=== PATIENT | female | born 1945 | race Caucasian/White ===

== ENCOUNTER 2022-03-27 14:00 | Outpatient (RCR) | payer MEDICARE, SELFPAY ==
--- NOTE | 2022-01-11 15:15 | OT.OPOE ---
OT Outpatient Ortho Eval OT Outpatient Ortho Eval Start: 01/10/22 11:50 Freq: Status: Active Protocol: Document 01/11/22 14:16 AMB (Rec: 01/11/22 15:06 AMB [id number]) E-Signed By Nancy Costello, OTR/L, CLT, VICE PRESIDENT [employer] OT OP Ortho Eval Details Type Type Eval Complexity Low Outpatient History/Precautions Current Condition/Medical Diagnosis Treatment Diagnosis LUE 2nd and 3rd TF release Date of Onset 10/26/21 Medical Contraindications DM,Metal Implants,Arthritis, Latex Allergy Other Contraindications PMH also includes BTKA, RTHA, RTSA+revision, BUE CTR, RUE TF release Medical/Functional History Medical History Reviewed Yes Prior Level of Function/Mobility Full, pain-free use of LUE Social History Employment Status Retired Oriented Mental Status No Concerns Ortho Subjective Subjective Subjective Pt states she underwent LUE TF release on her 2nd and 3rd fingers on 10/26/21 and has had difficulty straightening them ever since. Pt had TF release on her RUE a few years ago and did not struggle with this. Pt is RHD. Pt denies any pain at rest, has pain at 7-8/10 when she tries to straighten her fingers. Pain Assessment Pain Present Pain Present Pain Reported Location Left Finger Description Sharp,Tender Intensity 8 OT Objective Data Additional Information Objective Additional Information 01/11/22 AROM of BUE hands is WNL throughout with the exception of the LUE 2nd and 3rd digits. AROM of the LUE 2nd digit PIP is -25-90 flex, 3rd digit PIP is -25-85. Interactive Art Director on the RUE is 45#, LUE is 30#. 3pt pinch on the RUE is 10#, LUE is 8#. Lateral pinch on the RUE is 12#, LUE is 10#. OT Problems Problems Problems Decreased Strength,Decreased Range of Motion,Decreased Dexterity,Decreased Fine Motor ,Lifting,Gripping,Pinching Other Problems Opening Containers Patient Potential Good Ortho Goals Ortho Goals Goals 1. Pt will be independent and compliant with HEP in order to resume full, pain-free use of the involved UE. 3 weeks 2. Pt will demonstrate full, pain-free AROM of the involved UE in order to improve ability to grasp and hold. 6 weeks 3. 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 8 weeks. OT Outpatient Treatment Plan Ortho Plan Expected Frequency 1-2x Week Expected Duration 6-8 Weeks Treatment Plan Evaluation,Edema Control, Manual Therapy,Splinting, Ultrasound,Wound Care/Scar Management,Therapeutic Exercise,Therapeutic Activities Certification Certification I Certify That: Therapy Services Provided, Therapy Plan Established, Therapy Plan Reviewed
== END 2022-09-07 16:04 | disposition home or self-care (01) ==
PROVIDERS: Visit Provider Physician Assistant Surgical
DX: M65.339 Trigger finger, unspecified middle finger (principal); M65.332 Trigger finger, left middle finger; Z51.89 Encounter for other specified aftercare
CPT/HCPCS: 97035; 97140; 97165

== ENCOUNTER 2022-07-20 08:48 | Outpatient (CLI) | payer MEDICARE, SELFPAY ==
--- NOTE | 2022-07-20 09:15 | CRLHL7_ITS ---
For Patients: As a result of the Cures Act, medical imaging exams and procedure reports are released immediately into your electronic medical record. You may view this report before your referring provider. If you have questions, please contact your health care provider. INDICATION: Gastroesophageal reflux. TECHNIQUE: Double-contrast esophagram. FINDINGS: Presbyesophagus. Tertiary contractions. Incomplete clearing of the barium with the patient upright. With the patient in the recumbent position there was reflux up to the high esophagus incompletely cleared. Very small sliding-type esophageal hiatal hernia seen only intermittently. The visualized stomach and duodenum are grossly unremarkable. Incidental note is made of a sternotomy and a cardiac valve replacement. Lumbar spine surgery incompletely visualized. Surgically absent gallbladder. 2 minutes 15 seconds fluoroscopy time utilized. IMPRESSION: 1. Presbyesophagus. Small sliding-type esophageal hiatal hernia. Reflux up to the high esophagus intermittently with the patient in the recumbent and right lateral decubitus position. Incomplete clearing of the esophagus with the patient in the upright position as well. No stricture, mass, or obstruction of the esophagus. 2. The examination is otherwise unremarkable. Dictated by Jeremiah Ambrocio MD @ 07/20/2022 10:13:23 AM (Electronically Signed)
== END 2022-07-20 08:49 | disposition home or self-care (01) ==
LOC: RAD 08:51
PROVIDERS: PCP Nurse Practitioner Family; Visit Provider Internal Medicine Gastroenterology
DX: K21.9 Gastro-esophageal reflux disease without esophagitis (principal)
CPT/HCPCS: 74221